=== PATIENT | female | born 1940 | race African-American/Black ===

== ENCOUNTER → 2016-09-27 10:43 | Outpatient (CLI) | payer MEDICARE, BC | END | disposition home or self-care (01) | LOC: D.CT 09-20 14:30 | DX: M54.2 Cervicalgia (principal); R10.9 Unspecified abdominal pain; R10.2 Pelvic and perineal pain ==

== ENCOUNTER 2019-07-06 13:56 | Emergency (ER) | payer MEDICARE, BC ==
[~2019-07-06] VITALS: Ht 157.5 cm; Wt 81.4 kg
[2019-07-06 13:57] VITALS: Ht 157.5 cm; Wt 81.4 kg
[2019-07-06] MEDS ORDERED: ZANAFLEX4 MG PO (14:01)
[2019-07-06] MEDS ORDERED: NORVASC5 MG PO ×2 (14:02→16:44)
[2019-07-06] MEDS ORDERED: METOLAZONE5 MG PO (14:02)
[2019-07-06] MEDS ORDERED: RISPERDAL2 MG PO (14:02)
[2019-07-06] MEDS ORDERED: ACETAMINOPHEN500 M1 PO (14:03)
[2019-07-06] MEDS ORDERED: CRESTOR10 MG PO (14:03)
[2019-07-06] MEDS ORDERED: ISOSORBIDE MONO30 M1 PO (14:04)
[2019-07-06] MEDS ORDERED: SYNTHROID50 MCG PO (14:04)
[2019-07-06] MEDS ORDERED: VITAMIN D250000 UNIT PO (14:04)
[2019-07-06] MEDS ORDERED: COREG 3.1253.125 MG PO (14:04)
[2019-07-06 14:25] LABS: APPEARANCE CLEAR (CLEAR); BILIRUBIN NEGATIVE (NEGATIVE); COLOR YELLOW (YELLOW); GLUCOSE NEGATIVE (NEGATIVE); KETONE NEGATIVE (NEGATIVE); NITRITE NEGATIVE (NEGATIVE); PROTEIN NEGATIVE (NEGATIVE); SPECIFIC GRAVITY 1.015 (1.005-1.020); UROBILINOGEN NORMAL (NORMAL)
[2019-07-06 14:25] LABS: HEMOGLOBIN 12.6 g/dL (12-16); MCH 31.4 pg (26.0-34.0); MCHC 33.2 g/dL (31.0-37.0); MCV 94.8 fL (80.0-100.0); MEAN PLATELET VOLUME 9.3 fL (7.4-10.4); PLATELET COUNT 255 10x3/uL (130-400); RBC 4.01 10x6/uL (4.00-5.40); RDW 13.7 % (11.5-14.5); WBC 10.5 10x3/uL (4.8-10.8)
[2019-07-06 14:27] LABS: BACTERIA FEW /hpf (NEGATIVE); RED CELLS - URINE 0-5 /hpf (0-5); WHITE CELLS - URINE 0-5 /hpf (NEGATIVE)
[2019-07-06 14:38] LABS: CALC OSMOLALITY 269 mosm/kg (275-300); CALCIUM 9.2 mg/dL (8.5-10.1); CARBON DIOXIDE 29.9 mmol/L (21.0-32.0); CHLORIDE - SERUM 97 mmol/L (98-107); CREATININE - SERUM 0.7 mg/dL (0.6-1.3); GLUCOSE 91 mg/dL (74-106); POTASSIUM - SERUM 3.4 mmol/L (3.5-5.1); SODIUM 135 mmol/L (136-145); UREA NITROGEN 13 mg/dL (7-18); eGFR NON AFRICAN AMERICAN 85 mL/min (90-120)
[2019-07-06 14:44] LABS: ALBUMIN 3.5 g/dL (3.4-5.0); ALKALINE PHOSPHATASE 79 U/L (46-116); ALT (SGPT) 19 U/L (10-68); BILIRUBIN - TOTAL 0.24 mg/dL (0.2-1.3); PROTEIN - SERUM 6.6 g/dL (6.4-8.2)
[2019-07-06 14:48] LABS: EOSINOPHILS 1 % (0-7); LYMPHOCYTES 67 % (15-50); MONOCYTES 1 % (2-11); NEUTROPHILS 31 % (40-80); PLATELET ESTIMATE NORMAL; TARGET CELLS OCC
[2019-07-06 14:49] LABS: TEAR DROP CELLS OCC
[2019-07-06 18:02] VITALS: BP 142/68
== END 2019-07-06 18:03 | disposition home or self-care (01) ==
LOC: D.ER 13:56
PROVIDERS: Emergency Medicine
DX: R42 Dizziness and giddiness (principal); I10 Essential (primary) hypertension; E07.9 Disorder of thyroid, unspecified

== ENCOUNTER 2019-08-02 11:29 | Emergency (ER) | payer MEDICARE, BC ==
[~2019-08-02] VITALS: Ht 157.5 cm; Wt 81.3 kg
[~2019-08-02 11:29] MED LIST: ACETAMINOPHEN500 M1 PO; COREG 3.1253.125 MG PO; CRESTOR10 MG PO; ISOSORBIDE MONO30 M1 PO; METOLAZONE5 MG PO; NORVASC5 MG PO; RISPERDAL2 MG PO; SYNTHROID50 MCG PO; VITAMIN D250000 UNIT PO; ZANAFLEX4 MG PO
[2019-08-02 11:38] VITALS: Ht 157.5 cm; Wt 81.3 kg
[2019-08-02 13:33] VITALS: BP 129/72
== END 2019-08-02 13:34 | disposition home or self-care (01) ==
LOC: D.ER 11:29
DX: S80.02XA Contusion of left knee, initial encounter (principal); S00.83XA Contusion of other part of head, initial encounter; W01.0XXA Fall on same level from slipping, tripping and stumbling without subsequent striking against object, initial encounter; I10 Essential (primary) hypertension; Z85.6 Personal history of leukemia